=== PATIENT | male | born 1970 | race African-American/Black ===

== ENCOUNTER 2019-08-22 19:41 | Emergency (ER) | payer OTHER ==
[~2019-08-22] VITALS: Ht 193 cm; Wt 87.5 kg
[2019-08-22 20:23] LABS: ABSOLUTE BASOPHILS 0.1 thou/uL (0.0-0.2); ABSOLUTE LYMPHOCYTES 1.7 thou/uL (0.8-5.3); ABSOLUTE MONOCYTES 0.3 thou/uL (0.0-1.2); ABSOLUTE NEUTROPHILS 3.8 thou/uL (1.6-8.1); BASOPHILS 0.9 %; EOSINOPHILS 0.5 %; HEMATOCRIT 41.6 % (42.0-52.0); HEMOGLOBIN 13.8 gm/dL (14.0-18.0); LYMPHOCYTES 28.1 %; MCH 27.5 pg (26.0-34.0); MCHC 33.1 g/dL (28.0-37.0); MCV 83.3 fL (80.0-100.0); MONOCYTES 5.1 %; MPV 7.7 fl. (7.2-11.1); NUCLEATED RBCS 0 /100WBC; PLATELET COUNT* 262 thou/uL (150-400); POLYS 65.4 %; RDW-CV 14.5 % (10.5-14.5); WBC 5.9 thou/uL (4.0-11.0)
[2019-08-22 20:41] LABS: CALCIUM 9.6 mg/dL (8.5-10.1); POTASSIUM 4.1 mmol/L (3.5-5.1)
[2019-08-22 20:43] LABS: PROTIME 10.5 Seconds (9.20-11.50)
[2019-08-22 20:45] LABS: TOTAL BILIRUBIN 0.5 mg/dL (<0.1-1.0); TOTAL PROTEIN 7.3 g/dL (6.4-8.2)
[2019-08-22 23:07] VITALS: BP 117/70
--- NOTE | 2019-08-24 09:05 | EKG ---
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[place] : 1970 Requested By: Britta Hargrove Order Number: [id number] MD: Terrence Flor Measurements Intervals [place] Rate: 55 P: 61 MN: 157 QRS: 61 QRSD: 106 T: 64 QT: 400 QTc: 383 Interpretive Statements Sinus bradycardia ST elevation suggests acute pericarditis No previous ECG available for comparison Electronically Signed On 08-24-2019 9:05:22 [employer] by Terrence Flor [email or web address] <ELECTRONICALLY SIGNED> By: Terrence Flor MD, [facility] 08/24/19 0905 1944 43 Terrence Flor MD, FACC /EPI
== END 2019-08-22 23:08 | disposition home or self-care (01) ==
LOC: M.ERS 19:41
PROVIDERS: Emergency Medicine
DX: R07.89 Other chest pain (principal); F17.210 Nicotine dependence, cigarettes, uncomplicated